=== PATIENT | male | born 1990 | race Caucasian/White ===

== ENCOUNTER 2022-02-26 17:40 | Inpatient (IN) | payer OTHER ==
[2022-02-26 20:02] VITALS: BMI 19.9
[2022-02-26] MEDS ORDERED: NICOTINE POLACRILEX 2 MG GUM BUC PRN (21:11)
[2022-02-26] MEDS ORDERED: MAG HYDROX/AL HYDROX/SIMETH 30 ML UNIT-DOSE CUP PO PRN (21:11)
[2022-02-26] MEDS ORDERED: BENZOCAINE/MENTHOL (CHLORASEPTIC ) LOZENGE MM PRN (21:11)
[2022-02-26] MEDS ORDERED: LOPERAMIDE HCL 2 MG CAPSULE PO PRN (21:11)
[2022-02-26] MEDS ORDERED: MAGNESIUM CITRATE 300 ML BOTTLE PO PRN (21:11)
[2022-02-26] MEDS ORDERED: BISMUTH SUBSALICYLATE 524 MG/30 ML PO PRN (21:11)
[2022-02-26] MEDS ORDERED: MAGNESIUM HYDROX 2400MG/30ML ORAL SUSPENSION 30 ML CUP PO PRN (21:11)
[2022-02-26] MEDS ORDERED: ONDANSETRON *ODT* 4 MG TABLET SL PRN (21:11)
[2022-02-26] MEDS ORDERED: IBUPROFEN 600 MG TABLET (FP) PO PRN (21:11)
[2022-02-26] MEDS ORDERED: DICYCLOMINE HCL 10 MG CAPSULE PO PRN (21:11)
[2022-02-26] MEDS ORDERED: ACETAMINOPHEN 325 MG TABLET (FP) PO PRN ×2 (21:11)
[2022-02-26] MEDS ORDERED: P-EPHED 60MG/TRIPROLIDI 2.5MG TABLET PO PRN (21:11)
[2022-02-26] MEDS ORDERED: chlordiazePOXIDE HCL 25 MG CAPSULE PO PRN (21:13)
[2022-02-26] MEDS ORDERED: cloNIDine HCL 0.1 MG TABLET PO PRN (21:13)
[2022-02-26] MEDS: THIAMINE HCL 100 MG TABLET (FP) PO SCH (22:38)
[2022-02-26] MEDS: chlordiazePOXIDE HCL 25 MG CAPSULE PO SCH (22:39)
[2022-02-26] MEDS ORDERED: methaDONE HCL 10 MG TABLET (FOR DETOX USE ONLY) PO ONE (23:00)
[2022-02-27] MEDS: hydrOXYzine PAMOATE 25 MG CAPSULE (FP) PO PRN ×3 (06:09→22:39)
[2022-02-27] MEDS: chlordiazePOXIDE HCL 25 MG CAPSULE PO SCH ×4 (06:09→22:39)
[2022-02-27] MEDS ORDERED: methaDONE HCL 10 MG TABLET (FOR DETOX USE ONLY) ONE (09:17)
[2022-02-27 11:15] LABS: HEMATOCRIT 38.2 % (35.4-49); HEMOGLOBIN 12.7 GM/dL (11.7-16.9); MCH 29.7 pg (25.7-33.7); MCHC 33.2 g/dl (32.0-35.9); MEAN CELL VOLUME 89.5 fl (80-96); MEAN PLT VOLUME 6.9 fl (7.5-11.1); PLATELET COUNT 482 10^3/uL (134-434); RBC 4.27 M/mm3 (4.00-5.60); RDW 15.7 % (11.9-15.9); WHITE BLOOD COUNT 10.1 K/mm3 (4.0-10.0)
[2022-02-27 11:20] LABS: CALCIUM 9.1 mg/dL (8.5-10.1)
[2022-02-27 11:21] LABS: ALBUMIN 3.7 g/dl (3.4-5.0); BLOOD UREA NITROGEN 11.9 mg/dL (7-18)
[2022-02-27 11:24] LABS: CREATININE 0.8 mg/dL (0.55-1.3)
[2022-02-27 11:25] LABS: TOT PROT 7.6 g/dl (6.4-8.2)
[2022-02-27 11:26] LABS: BILIRUBIN,TOTAL 0.6 mg/dL (0.2-1)
[2022-02-27] MEDS: PRENATAL VITAMINS W/ FOLIC ACID TABLET (FP) PO SCH (12:30)
[2022-02-27] MEDS: MELATONIN 5 MG TABLETS PO PRN (22:39)
[2022-02-27] MEDS: THIAMINE HCL 100 MG TABLET (FP) PO SCH (22:39)
[2022-02-28] MEDS: chlordiazePOXIDE HCL 25 MG CAPSULE PO SCH ×4 (08:25→22:25)
[2022-02-28] MEDS ORDERED: methaDONE HCL 10 MG TABLET (FOR DETOX USE ONLY) PO ONE (10:00)
[2022-02-28] MEDS: PRENATAL VITAMINS W/ FOLIC ACID TABLET (FP) PO SCH (12:15)
[2022-02-28] MEDS: THIAMINE HCL 100 MG TABLET (FP) PO SCH (22:25)
[2022-02-28] MEDS: METHOCARBAMOL 500 MG TABLET PO PRN (22:25)
[2022-03-01] MEDS ORDERED: chlordiazePOXIDE HCL 10 MG CAPSULE PO PRN
[2022-03-01] MEDS: chlordiazePOXIDE HCL 10 MG CAPSULE PO SCH ×4 (06:25→22:19)
[2022-03-01] MEDS: METHOCARBAMOL 500 MG TABLET PO PRN ×2 (06:25→18:26)
[2022-03-01] MEDS ORDERED: methaDONE HCL 10 MG TABLET (FOR DETOX USE ONLY) ONE (09:26)
[2022-03-01] MEDS: hydrOXYzine PAMOATE 25 MG CAPSULE (FP) PO PRN (10:43)
[2022-03-01] MEDS: PRENATAL VITAMINS W/ FOLIC ACID TABLET (FP) PO SCH (10:43)
[2022-03-01] MEDS: IBUPROFEN 400 MG TABLET (FP) PO PRN ×2 (10:48→18:26)
[2022-03-01] MEDS: THIAMINE HCL 100 MG TABLET (FP) PO SCH (22:18)
[2022-03-01] MEDS: MELATONIN 5 MG TABLETS PO PRN (22:19)
[2022-03-02] MEDS ORDERED: chlordiazePOXIDE HCL 10 MG CAPSULE PO SCH (05:00)
[2022-03-02 09:19] VITALS: BP 126/89; PULSE 61; RESP 16; TEMP 98
[2022-03-02] MEDS: METHOCARBAMOL 500 MG TABLET PO PRN (09:55)
[2022-03-02] MEDS: hydrOXYzine PAMOATE 25 MG CAPSULE (FP) PO PRN (09:55)
[2022-03-02] MEDS ORDERED: methaDONE HCL 10 MG TABLET (FOR DETOX USE ONLY) PO ONE (10:00)
[2022-03-02] MEDS: PRENATAL VITAMINS W/ FOLIC ACID TABLET (FP) PO SCH (11:13)
[2022-03-03] MEDS ORDERED: chlordiazePOXIDE HCL 10 MG CAPSULE PO ONE (05:00)
== END 2022-03-02 11:04 | disposition home or self-care (01) | DRG 773 ==
LOC: YASAS 17:40 → Y3N 21:32
PROVIDERS: ADMIT Allergy & Immunology; ATTEND Surgery
PROC: HZ2ZZZZ Detoxification Services for Substance Abuse Treatment (ICD-10-PCS; principal; 2022-02-26)
DX: F11.23 Opioid dependence with withdrawal (principal); F13.230 Sedative, hypnotic or anxiolytic dependence with withdrawal, uncomplicated; F12.20 Cannabis dependence, uncomplicated; F17.210 Nicotine dependence, cigarettes, uncomplicated; R00.1 Bradycardia, unspecified; R94.31 Abnormal electrocardiogram [ECG] [EKG]
CPT/HCPCS: 36415; 80053; 85027; 86780; 93005; 93010; C9803-CS; U0003; U0005

== ENCOUNTER 2023-03-24 16:33 | Inpatient (IN) | payer OTHER ==
[2023-03-24 18:05] VITALS: BMI 20.6
[2023-03-24] MEDS ORDERED: MAGNESIUM HYDROX 2400MG/30ML ORAL SUSPENSION 30 ML CUP PO PRN (20:37)
[2023-03-24] MEDS ORDERED: NALOXONE HCL 0.4 MG/ML VIAL IM PRN (20:37)
[2023-03-24] MEDS ORDERED: NICOTINE POLACRILEX 2 MG GUM BUC PRN (20:37)
[2023-03-24] MEDS ORDERED: IBUPROFEN 400 MG TABLET (FP) PO PRN (20:37)
[2023-03-24] MEDS ORDERED: BENZONATATE 200 MG CAPSULE PO PRN (20:37)
[2023-03-24] MEDS ORDERED: MAG HYDROX/AL HYDROX/SIMETH 30 ML UNIT-DOSE CUP PO PRN (20:37)
[2023-03-24] MEDS ORDERED: LOPERAMIDE HCL 2 MG CAPSULE PO PRN (20:37)
[2023-03-24] MEDS ORDERED: IBUPROFEN 600 MG TABLET (FP) PO PRN (20:37)
[2023-03-24] MEDS ORDERED: POLYETHYLENE GLYCOL (HEALTHYLAX) 3350 17 GM PACKET PO PRN (20:37)
[2023-03-24] MEDS ORDERED: BENZOCAINE/MENTHOL (CHLORASEPTIC ) LOZENGE MM PRN (20:37)
[2023-03-24] MEDS ORDERED: guaiFENesin 600 MG TABLET.ER (FP) PO PRN (20:37)
[2023-03-24] MEDS ORDERED: BISMUTH SUBSALICYLATE 524 MG/30 ML PO PRN (20:37)
[2023-03-24] MEDS ORDERED: NALOXONE HCL (KLOXXADO) 8 MG SPRAY NS PRN (20:37)
[2023-03-24] MEDS ORDERED: ONDANSETRON *ODT* 4 MG TABLET SL PRN (20:37)
[2023-03-24] MEDS ORDERED: DICYCLOMINE HCL 10 MG CAPSULE PO PRN (20:37)
[2023-03-24] MEDS ORDERED: ACETAMINOPHEN 325 MG TABLET (FP) PO PRN (20:37)
[2023-03-24] MEDS ORDERED: cloNIDine HCL 0.1 MG TABLET PO PRN (20:40)
[2023-03-24] MEDS ORDERED: methaDONE HCL 10 MG TABLET (FOR DETOX USE ONLY) ONE (21:00)
[2023-03-24] MEDS ORDERED: methaDONE HCL 10 MG TABLET (FOR DETOX USE ONLY) PO ONE (21:00)
[2023-03-24] MEDS: MELATONIN 5 MG TABLETS PO SCH (22:37)
[2023-03-24] MEDS: METHOCARBAMOL 500 MG TABLET PO PRN (22:37)
[2023-03-24] MEDS: THIAMINE HCL 100 MG TABLET (FP) PO SCH (22:37)
[2023-03-24] MEDS: diazePAM 5 MG TABLET PO SCH (22:37)
[2023-03-25] MEDS: diazePAM 5 MG TABLET PO SCH ×4 (05:57→22:28)
[2023-03-25] MEDS: NICOTINE 21 MG/24 HOURS TOPICAL PATCH TD SCH (10:24)
[2023-03-25] MEDS: PRENATAL VITAMINS W/ FOLIC ACID TABLET (FP) PO SCH (10:25)
[2023-03-25 10:46] LABS: HEMATOCRIT 36.7 % (35.4-49); HEMOGLOBIN 12.4 GM/dL (11.7-16.9); MCH 28.3 pg (25.7-33.7); MCHC 33.8 g/dl (32.0-35.9); MEAN CELL VOLUME 83.7 fl (80-96); PLATELET COUNT 343 10^3/uL (134-434); RBC 4.39 M/mm3 (4.00-5.60); RDW 16.3 % (11.9-15.9); WHITE BLOOD COUNT 7.6 K/mm3 (4.0-10.0)
[2023-03-25 11:47] LABS: BLOOD UREA NITROGEN 12.2 mg/dL (7-18)
[2023-03-25 11:48] LABS: ALBUMIN 2.8 g/dl (3.4-5.0)
[2023-03-25 11:49] LABS: CALCIUM 8.8 mg/dL (8.5-10.1)
[2023-03-25 11:51] LABS: CREATININE 0.8 mg/dL (0.55-1.3)
[2023-03-25 11:52] LABS: BILIRUBIN,TOTAL 0.3 mg/dL (0.2-1); TOT PROT 5.8 g/dl (6.4-8.2)
[2023-03-25] MEDS: MELATONIN 5 MG TABLETS PO SCH (22:27)
[2023-03-25] MEDS: THIAMINE HCL 100 MG TABLET (FP) PO SCH (22:27)
[2023-03-25] MEDS: METHOCARBAMOL 500 MG TABLET PO PRN (22:27)
[2023-03-26] MEDS: diazePAM 5 MG TABLET PO SCH ×3 (06:01→22:28)
[2023-03-26] MEDS: PRENATAL VITAMINS W/ FOLIC ACID TABLET (FP) PO SCH (09:58)
[2023-03-26] MEDS: diazePAM 5 MG TABLET PO PRN ×2 (09:58→20:01)
[2023-03-26] MEDS: NICOTINE 21 MG/24 HOURS TOPICAL PATCH TD SCH (09:58)
[2023-03-26] MEDS ORDERED: methaDONE HCL 10 MG TABLET (FOR DETOX USE ONLY) PO ONE (10:00)
[2023-03-26] MEDS: METHOCARBAMOL 500 MG TABLET PO PRN ×2 (14:47→22:28)
[2023-03-26] MEDS: MELATONIN 5 MG TABLETS PO SCH (22:28)
[2023-03-26] MEDS: THIAMINE HCL 100 MG TABLET (FP) PO SCH (22:28)
[2023-03-27] MEDS: diazePAM 5 MG TABLET PO SCH ×2 (05:48→17:50)
[2023-03-27] MEDS: PRENATAL VITAMINS W/ FOLIC ACID TABLET (FP) PO SCH (10:30)
[2023-03-27] MEDS: NICOTINE 21 MG/24 HOURS TOPICAL PATCH TD SCH (10:30)
[2023-03-27] MEDS: METHOCARBAMOL 500 MG TABLET PO PRN ×2 (13:30→22:18)
[2023-03-27] MEDS: MELATONIN 5 MG TABLETS PO SCH (22:18)
[2023-03-27] MEDS: THIAMINE HCL 100 MG TABLET (FP) PO SCH (22:18)
[2023-03-28] MEDS ORDERED: diazePAM 5 MG TABLET PO ONE (06:00)
[2023-03-28 09:53] VITALS: BP 122/68; PULSE 74; RESP 16; TEMP 98.1
[2023-03-28] MEDS ORDERED: methaDONE HCL 10 MG TABLET (FOR DETOX USE ONLY) PO ONE (10:00)
[2023-03-28] MEDS: PRENATAL VITAMINS W/ FOLIC ACID TABLET (FP) PO SCH (10:18)
[2023-03-28] MEDS: NICOTINE 21 MG/24 HOURS TOPICAL PATCH TD SCH (10:18)
== END 2023-03-28 10:58 | disposition home or self-care (01) | DRG 773 ==
LOC: YASAS 16:33 → Y3N 21:45
PROVIDERS: ADMIT Allergy & Immunology; ATTEND Surgery
PROC: HZ2ZZZZ Detoxification Services for Substance Abuse Treatment (ICD-10-PCS; principal; 2023-03-24)
DX: F11.23 Opioid dependence with withdrawal (principal); F10.230 Alcohol dependence with withdrawal, uncomplicated; F13.230 Sedative, hypnotic or anxiolytic dependence with withdrawal, uncomplicated; F12.20 Cannabis dependence, uncomplicated; F17.210 Nicotine dependence, cigarettes, uncomplicated
CPT/HCPCS: 36415; 80053; 85027; 86780; 87635

== ENCOUNTER 2023-08-30 14:44 | Inpatient (IN) | payer OTHER ==
[2023-08-30 15:14] VITALS: BMI 22.4
[2023-08-30] MEDS ORDERED: guaiFENesin 600 MG TABLET.ER (FP) PO PRN (15:22)
[2023-08-30] MEDS ORDERED: NALOXONE HCL 0.4 MG/ML VIAL IM PRN (15:22)
[2023-08-30] MEDS ORDERED: BENZOCAINE/MENTHOL (CHLORASEPTIC ) LOZENGE MM PRN (15:22)
[2023-08-30] MEDS ORDERED: IBUPROFEN 400 MG TABLET (FP) PO PRN (15:22)
[2023-08-30] MEDS ORDERED: ACETAMINOPHEN 325 MG TABLET (FP) PO PRN (15:22)
[2023-08-30] MEDS ORDERED: LOPERAMIDE HCL 2 MG CAPSULE PO PRN (15:22)
[2023-08-30] MEDS ORDERED: P-EPHED 60MG/TRIPROLIDI 2.5MG TABLET PO PRN (15:22)
[2023-08-30] MEDS ORDERED: BENZONATATE 200 MG CAPSULE PO PRN (15:22)
[2023-08-30] MEDS ORDERED: ONDANSETRON *ODT* 4 MG TABLET SL PRN (15:22)
[2023-08-30] MEDS ORDERED: DICYCLOMINE HCL 10 MG CAPSULE PO PRN (15:22)
[2023-08-30] MEDS ORDERED: POLYETHYLENE GLYCOL (HEALTHYLAX) 3350 17 GM PACKET PO PRN (15:22)
[2023-08-30] MEDS ORDERED: MAG HYDROX/AL HYDROX/SIMETH 30 ML UNIT-DOSE CUP PO PRN (15:22)
[2023-08-30] MEDS ORDERED: MAGNESIUM HYDROX 2400MG/30ML ORAL SUSPENSION 30 ML CUP PO PRN (15:22)
[2023-08-30] MEDS ORDERED: NALOXONE HCL (KLOXXADO) 8 MG SPRAY NS PRN (15:22)
[2023-08-30] MEDS ORDERED: BISMUTH SUBSALICYLATE 524 MG/30 ML PO PRN (15:22)
[2023-08-30] MEDS ORDERED: NICOTINE POLACRILEX 2 MG GUM BUC PRN (15:22)
[2023-08-30] MEDS: IBUPROFEN 600 MG TABLET (FP) PO PRN (17:20)
[2023-08-30] MEDS: THIAMINE HCL 100 MG TABLET (FP) PO SCH (22:21)
[2023-08-30] MEDS: levETIRAcetam 500 MG TABLET (FP) PO SCH (22:21)
[2023-08-30] MEDS: MELATONIN 5 MG TABLETS PO SCH (22:22)
[2023-08-30] MEDS: hydrOXYzine PAMOATE 25 MG CAPSULE (FP) PO PRN (22:23)
[2023-08-31 10:02] LABS: HEMATOCRIT 39.4 % (35.4-49); HEMOGLOBIN 13.2 GM/dL (11.7-16.9); MCH 29.2 pg (25.7-33.7); MCHC 33.6 g/dl (32.0-35.9); MEAN CELL VOLUME 86.7 fl (80-96); MEAN PLT VOLUME 7.5 fl (7.5-11.1); PLATELET COUNT 375 10^3/uL (134-434); RBC 4.54 M/mm3 (4.00-5.60); RDW 15.4 % (11.9-15.9); WHITE BLOOD COUNT 8.1 K/mm3 (4.0-10.0)
[2023-08-31 10:03] LABS: POTASSIUM 4.1 mmol/L (3.5-5.1)
[2023-08-31 10:22] LABS: CALCIUM 8.6 mg/dL (8.5-10.1)
[2023-08-31 10:23] LABS: BLOOD UREA NITROGEN 10.1 mg/dL (7-18)
[2023-08-31 10:26] LABS: CREATININE 0.9 mg/dL (0.55-1.3)
[2023-08-31 10:27] LABS: TOT PROT 6.2 g/dl (6.4-8.2)
[2023-08-31 10:28] LABS: BILIRUBIN,TOTAL 0.2 mg/dL (0.2-1)
[2023-08-31] MEDS: levETIRAcetam 500 MG TABLET (FP) PO SCH ×2 (10:47→22:17)
[2023-08-31] MEDS: PRENATAL VITAMINS W/ FOLIC ACID TABLET (FP) PO SCH (10:47)
[2023-08-31] MEDS: METHOCARBAMOL 500 MG TABLET PO PRN ×2 (10:47→17:29)
[2023-08-31] MEDS: hydrOXYzine PAMOATE 25 MG CAPSULE (FP) PO PRN (10:47)
[2023-08-31 12:18] LABS: HIV INTERPRETATION NEGATIVE (NEGATIVE)
[2023-08-31] MEDS: IBUPROFEN 600 MG TABLET (FP) PO PRN (14:45)
[2023-08-31] MEDS: diazePAM 5 MG TABLET PO SCH ×2 (17:28→22:17)
[2023-08-31] MEDS: MELATONIN 5 MG TABLETS PO SCH (22:17)
[2023-08-31] MEDS: THIAMINE HCL 100 MG TABLET (FP) PO SCH (22:17)
[2023-09-01] MEDS: hydrOXYzine PAMOATE 25 MG CAPSULE (FP) PO PRN (05:34)
[2023-09-01 05:49] VITALS: PULSE 79
[2023-09-01] MEDS ORDERED: diazePAM 5 MG TABLET PO SCH (06:00)
[2023-09-01] MEDS: PRENATAL VITAMINS W/ FOLIC ACID TABLET (FP) PO SCH (09:06)
[2023-09-01] MEDS: levETIRAcetam 500 MG TABLET (FP) PO SCH (09:07)
[2023-09-01 09:27] VITALS: BP 120/75; RESP 18; TEMP 98.4
[2023-09-02] MEDS ORDERED: diazePAM 5 MG TABLET PO SCH (06:00)
[2023-09-03] MEDS ORDERED: diazePAM 5 MG TABLET PO ONE (06:00)
== END 2023-09-01 09:55 | disposition home or self-care (01) | DRG 776 ==
LOC: YASAS 14:44 → Y6N 16:26
PROVIDERS: ADMIT Allergy & Immunology; ATTEND Allergy & Immunology
PROC: HZ2ZZZZ Detoxification Services for Substance Abuse Treatment (ICD-10-PCS; principal; 2023-08-30)
DX: F13.230 Sedative, hypnotic or anxiolytic dependence with withdrawal, uncomplicated (principal); F12.20 Cannabis dependence, uncomplicated; F17.210 Nicotine dependence, cigarettes, uncomplicated; F41.9 Anxiety disorder, unspecified; R56.9 Unspecified convulsions
CPT/HCPCS: 36415; 80053; 85027; 86780; 87389; 87635

== ENCOUNTER 2023-10-15 21:17 | Inpatient (IN) | payer OTHER ==
[2023-10-15 21:55] VITALS: BMI 21.7
[2023-10-15] MEDS ORDERED: levETIRAcetam 500 MG TABLET (FP) PO ONE (22:46)
[2023-10-15] MEDS ORDERED: POLYETHYLENE GLYCOL (HEALTHYLAX) 3350 17 GM PACKET PO PRN (22:47)
[2023-10-15] MEDS ORDERED: LOPERAMIDE HCL 2 MG CAPSULE PO PRN (22:47)
[2023-10-15] MEDS ORDERED: BENZONATATE 200 MG CAPSULE PO PRN (22:47)
[2023-10-15] MEDS ORDERED: P-EPHED 60MG/TRIPROLIDI 2.5MG TABLET PO PRN (22:47)
[2023-10-15] MEDS ORDERED: BENZOCAINE/MENTHOL (CHLORASEPTIC ) LOZENGE MM PRN (22:47)
[2023-10-15] MEDS ORDERED: guaiFENesin 600 MG TABLET.ER (FP) PO PRN (22:47)
[2023-10-15] MEDS ORDERED: MAGNESIUM HYDROX 2400MG/30ML ORAL SUSPENSION 30 ML CUP PO PRN (22:47)
[2023-10-15] MEDS ORDERED: IBUPROFEN 400 MG TABLET (FP) PO PRN (22:47)
[2023-10-15] MEDS ORDERED: ACETAMINOPHEN 325 MG TABLET (FP) PO PRN (22:47)
[2023-10-15] MEDS ORDERED: MAG HYDROX/AL HYDROX/SIMETH 30 ML UNIT-DOSE CUP PO PRN (22:47)
[2023-10-15] MEDS ORDERED: NICOTINE POLACRILEX 2 MG GUM BUC PRN (22:47)
[2023-10-15] MEDS: levETIRAcetam 500 MG TABLET (FP) PO SCH (22:49)
[2023-10-16] MEDS ORDERED: MELATONIN 5 MG TABLETS ONE (00:32)
[2023-10-16] MEDS: MELATONIN 5 MG TABLETS PO SCH (00:34)
[2023-10-16] MEDS: IBUPROFEN 600 MG TABLET (FP) PO PRN (01:09)
[2023-10-16] MEDS: hydrOXYzine PAMOATE 25 MG CAPSULE (FP) PO PRN (01:10)
[2023-10-16 01:24] VITALS: PULSE 64; RESP 18; TEMP 97.8
[2023-10-16 07:16] VITALS: BP 103/66
[2023-10-16] MEDS: PRENATAL VITAMINS W/ FOLIC ACID TABLET (FP) PO SCH (10:25)
[2023-10-16 12:11] LABS: HEMATOCRIT 41.8 % (35.4-49); MCH 29.1 pg (25.7-33.7); MCHC 33.5 g/dl (32.0-35.9); MEAN PLT VOLUME 7.8 fl (7.5-11.1); PLATELET COUNT 373 10^3/uL (134-434); RBC 4.81 M/mm3 (4.00-5.60); RDW 14.2 % (11.9-15.9)
[2023-10-16 12:49] LABS: SYPHILIS W/ RPR CONF NON-REACTIVE (NONREACTIVE)
[2023-10-16 13:50] LABS: CHLORIDE 104 mmol/L (98-107); POTASSIUM 4.1 mmol/L (3.5-5.1); SODIUM 139 mmol/L (136-145)
[2023-10-16 13:55] LABS: ALBUMIN 3.8 g/dl (3.4-5.0); BLOOD UREA NITROGEN 11.6 mg/dL (7-18); CALCIUM 9.1 mg/dL (8.5-10.1)
[2023-10-16 13:58] LABS: ANION GAP 6 mmol/L (4-13); CO2 30 mmol/L (21-32); CREATININE 0.8 mg/dL (0.55-1.3); SGOT/AST 9 U/L (15-37)
[2023-10-16 13:59] LABS: BILIRUBIN,TOTAL 0.2 mg/dL (0.2-1); TOT PROT 7.2 g/dl (6.4-8.2)
[2023-10-16 14:01] LABS: GLUCOSE,RANDOM 98 mg/dL (74-106)
[2023-10-16 14:02] LABS: ALK PHOS 86 U/L (45-117)
[2023-10-16 14:04] LABS: SGPT/ALT 19 U/L (13-61)
[2023-10-16] MEDS ORDERED: THIAMINE HCL 100 MG TABLET (FP) PO SCH (22:00)
== END 2023-10-16 14:15 | disposition home or self-care (01) | DRG 772 ==
LOC: YASAS 21:17 → Y5N 10-16 00:21
PROVIDERS: ADMIT Allergy & Immunology; ATTEND Psychiatry & Neurology Pain Medicine
PROC: HZ42ZZZ Group Counseling for Substance Abuse Treatment, Cognitive-Behavioral (ICD-10-PCS; principal; 2023-10-16)
DX: F12.20 Cannabis dependence, uncomplicated (principal); F17.210 Nicotine dependence, cigarettes, uncomplicated; F19.280 Other psychoactive substance dependence with psychoactive substance-induced anxiety disorder; F19.282 Other psychoactive substance dependence with psychoactive substance-induced sleep disorder; G47.00 Insomnia, unspecified; F91.8 Other conduct disorders; Z91.199 Patient's noncompliance with other medical treatment and regimen due to unspecified reason
CPT/HCPCS: 36415; 80053; 80305; 80307; 85027; 86780; 86803; 87635; 87811